=== PATIENT | female | born 1970 | race Caucasian/White ===

== ENCOUNTER → 2017-12-10 | Day surgery (SDC) | payer BC, OTHER ==
[2017-11-18 09:06] VITALS: Ht 177.8 cm; Wt 60.5 kg
[~2017-12-10] VITALS: Ht 177.8 cm; Wt 60.5 kg
[~2017-12-10] MED LIST: ASPI81TA28 PO; ATEN-173 PO; MULT-506 PO
== END | disposition home or self-care (01) ==
LOC: EDSTATUS 13:00 → C.PAT 15:38
PROVIDERS: ATTEND Physical Medicine & Rehabilitation
DX: M54.5 Low back pain (principal)